=== PATIENT | female | born 1970 | race Hispanic/Latino ===

== ENCOUNTER 2017-08-07 10:52 | Outpatient (CLI) | payer BC ==
--- NOTE | 2017-08-07 12:49 | RAD ---
THREE VIEWS OF THE CERVICAL SPINE: 08/07/2017 HISTORY: Headache. Recent fall. TECHNIQUE: Lateral neutral flexion and extension radiographs of the cervical spine provided. FINDINGS: There is no anterolisthesis or retrolisthesis noted within the cervical spine on the neutral, flexion , or extension imaging. No prevertebral soft tissue abnormality. IMPRESSION: Normal cervical vertebral body height and alignment. POS: [facility]
--- NOTE | 2017-08-07 13:04 | CT ---
BRAIN CT WITHOUT IV CONTRAST: HISTORY: A 47-year-old female with a history of a headache after falling one week ago. FINDINGS: No focal mass or midline shift. No intraaxial or extraaxial hemorrhage. The sinuses and mastoids ar e clear. No acute process. IMPRESSION: Moderate atrophy for age. No mass or bleed or other acute process. POS: OFF
== END 2017-08-07 10:53 | disposition home or self-care (01) ==
LOC: SCSCT 10:52
PROVIDERS: ATTEND Neurological Surgery
DX: R51 Headache (principal)
CPT/HCPCS: 70450; 72040

== ENCOUNTER 2018-04-20 10:46 | Outpatient (CLI) | payer BC ==
--- NOTE | 2018-04-20 22:27 | MRI ---
MRI OF THE BILATERAL BREASTS WITH AND WITH CONTRAST 04/20/18 COMPARISON: Mammograms 04/20/18 and MRI of the breast 03/30/16. HISTORY: Family history of breast cancer. TECHNIQUE: Multiplanar and multisequence MR images are obtained of the bilateral breasts without and with IV con trasts. Contrast enhancement curves and 3D MIP reformats were generated on a [employer] workstation. FINDINGS: The patient has extremely dense breast parenchyma. The patient has bilateral saline breast implants w hich are predominantly subglandular There Is moderate background parenchymal enhancement which limits evaluation on this exam. There are multiple large nonenhancing foci of high T2 signal in the bilate ral breasts measuring up to 5.2 cm in size which represents cysts. No obvious suspicious mass is seen amongst a moderate background parenchymal enhancement. No suspicio us area of enhancement is appreciated. No axillary adenopathy is seen. No internal mammary lymph nodes are identified. The visualized anterior liver is unremarkable. No marrow signal abnormality is seen. IMPRESSION: BIRADS 2: Benign Finding(s) Routine annual screening mammography (for women over age 40). This exam is limited secondary to moderate background parenchymal enhancement. POS: [facility]
== END 2018-04-20 10:47 | disposition home or self-care (01) ==
LOC: BICMAMMO 10:46
PROVIDERS: ATTEND Obstetrics & Gynecology
DX: Z12.31 Encounter for screening mammogram for malignant neoplasm of breast (principal); Z80.3 Family history of malignant neoplasm of breast
CPT/HCPCS: 77063; 77067; C8908

== ENCOUNTER 2019-03-05 11:06 | Outpatient (CLI) | payer BC ==
--- NOTE | 2019-03-05 11:56 | RAD ---
3 views of the lumbar spine: 03/05/2019 COMPARISON: None HISTORY: Low back pain FINDINGS: Provided images include lateral neutral, flexion, and extension views of the lumbar spine. The neutral lateral exam demonstrates disc space narrowing with mild degenerative endplate change and anterior osteophyte formation at L3-4. There is mild retrolisthesis at L3-4 on the neutral imagin g measuring 3 mm. The flexion imaging demonstrates no anterolisthesis or retrolisthesis within the lumbar spine. There is no significant anterolisthesis or retrolisthesis seen on the extension view ei ther. Mild multilevel lower lumbar spine facet hypertrophy. IMPRESSION: Degenerative change within the lumbar spine, most prominent at L3-4 as detailed above.
== END 2019-03-05 11:07 | disposition home or self-care (01) ==
LOC: SCSRAD 11:06
PROVIDERS: ATTEND Neurological Surgery
DX: M54.5 Low back pain (principal); M47.816 Spondylosis without myelopathy or radiculopathy, lumbar region
CPT/HCPCS: 72110

== ENCOUNTER 2019-05-20 13:01 | Outpatient (CLI) | payer BC ==
--- NOTE | 2019-05-20 13:56 | MMO ---
Right Breast MAMMO Unilat Diag [facility]DI RT+JENNIFER. CLINICAL HISTORY: Patient is 49 years old and is seen for diagnostic exam and palpable abnormality in the right breast. The patient has the following family history of breast cancer: mother, at age 50; 2 aunts and grandmother. The patient has no personal history of cancer. The patient has a history of bilateral Implants in 2010 and right Excisional Biopsy in 2005 - benign. VIEWS: The views performed were: right craniocaudal; right craniocaudal with tomosynthesis; right mediolateral oblique; right mediolateral oblique with tomosynthesis; right mediolateral; right mediolateral with tomosynthesis; and right Implant displaced with tomosynthesis. FILMS COMPARED: The present examination has been compared to prior imaging studies performed at [facility] on 04/17/2019, and at [facility] on 08/10/2016, 04/20/2018 and 05/20/2019. This study has been interpreted with the assistance of computer-aided detection. MAMMOGRAM FINDINGS: The breast is extremely dense, which may lower the sensitivity of mammography. Ultrasound of the palpable finding was shown to be a cyst. There are no suspicious masses, suspicious calcifications, or new areas of architectural distortion. IMPRESSION: THERE IS NO MAMMOGRAPHIC EVIDENCE OF MALIGNANCY. A ROUTINE FOLLOW-UP MAMMOGRAM IN 1 YEAR IS RECOMMENDED. THE RESULTS OF THIS EXAM WERE SENT TO THE PATIENT. ACR BI-RADS Category 2 - Benign finding MAMMOGRAPHY NOTE: 1. A negative mammogram report should not delay a biopsy if a dominant of clinically suspicious mass is present. 2. Approximately 10% to 15% of breast cancers are not detected by mammography. 3. Adenosis and dense breasts may obscure an underlying neoplasm. Reported by: MATI HOTL MD Electonically Signed: [id number]
--- NOTE | 2019-05-20 13:59 | ULT ---
RIGHT BREAST ULTRASOUND: HISTORY: Palpable mass in the right breast. FINDINGS: Correlation is made with the mammogram of the same date. Sonographic evaluation of the region of palpable concern at the 1 o'clock position of the right breas t 5 cm from the nipple demonstrates a large cyst measuring 3.7 x 1.8 x 3.2 cm. MRI of 04/20/2018 demonstrates multiple bilateral breast cysts. IMPRESSION: BIRADS category 2 - benign findings. Return to annual mammographic screening. POS: OFF
== END 2019-05-20 13:02 | disposition home or self-care (01) ==
LOC: BICMAMMO 13:01
PROVIDERS: ATTEND Family Medicine
DX: N63.10 Unspecified lump in the right breast, unspecified quadrant (principal)
CPT/HCPCS: G0279

== ENCOUNTER 2023-01-20 14:17 | Outpatient (CLI) | payer OTHER | END 2023-01-20 14:18 | disposition home or self-care (01) | LOC: ULT 14:17 | PROVIDERS: ATTEND Thoracic Surgery (Cardiothoracic Vascular Surgery) | DX: I82.403 Acute embolism and thrombosis of unspecified deep veins of lower extremity, bilateral (principal) | CPT/HCPCS: 93970 ==

== ENCOUNTER 2023-07-04 07:30 | Inpatient (IN) | payer OTHER ==
[2023-07-04 15:34] VITALS: BMI 27.3
[2023-07-11] MEDS ORDERED: Propofol 500 MG/50 ML VIAL ONE (06:54)
[2023-07-11] MEDS ORDERED: PROPOFOL 0 ML ONE (06:56)
[2023-07-11] MEDS ORDERED: fentaNYL PF 100 MCG/2 ML SYRINGE ONE ×2 (06:56→08:23)
[2023-07-11] MEDS ORDERED: Lidocaine 2% 6 ML (Jelly) SYR ONE (06:56)
[2023-07-11] MEDS ORDERED: Lidocaine 1% PF 5 ML VIAL ONE (06:57)
[2023-07-11] MEDS ORDERED: Rocuronium Bromide 10 MG/ML (10ML VIAL) ONE (06:57)
[2023-07-11] MEDS ORDERED: Bupivacaine 0.25% HCL 30 ML VIAL ONE ×2 (07:04→07:20)
[2023-07-11] MEDS ORDERED: Lidocaine 1% (PF) 30 ML VIAL ONE (07:04)
[2023-07-11] MEDS ORDERED: Midazolam HCl 2 mg/2 ml Vial ONE ×2 (07:04→07:16)
[2023-07-11] MEDS ORDERED: fentaNYL 50 mcg/mL 1 mL Vial ONE ×2 (07:04→10:21)
[2023-07-11] MEDS ORDERED: Famotidine/PF 20 mg/2ml Vial ONE (07:12)
[2023-07-11] MEDS ORDERED: Ketamine In 0.9 % NaCl 50 MG/5 ML SYRINGE ONE (07:17)
[2023-07-11] MEDS ORDERED: EPINEPHrine 1 MG/ML VIAL ONE (07:20)
[2023-07-11] MEDS ORDERED: CEFAZOLIN 2 GM VIAL ONE (07:25)
[2023-07-11] MEDS ORDERED: Sodium Chloride 0.9% 100 ML ONE (07:25)
[2023-07-11] MEDS ORDERED: ePHEDrine Sulfate 50 MG/10 ML VIAL ONE (07:46)
[2023-07-11] MEDS ORDERED: Dexamethasone 20 MG/5 ML VIAL ONE (07:46)
[2023-07-11] MEDS ORDERED: Phenylephrine 10 MG/ML VIAL ONE (07:48)
[2023-07-11] MEDS ORDERED: Dexmedetomidine 200 MCG/2 ML VIAL ONE (08:07)
[2023-07-11] MEDS ORDERED: Esmolol 100 MG/10 ML VIAL ONE (08:26)
[2023-07-11] MEDS ORDERED: Ondansetron HCl/PF 4 MG/2 ML Vial IVP PRN (09:07)
[2023-07-11] MEDS ORDERED: Promethazine HCl 25 MG/ML VIAL IM PRN ×3 (09:07→10:17)
[2023-07-11] MEDS ORDERED: Ondansetron PF 4 MG/2 ML Vial ONE (09:24)
[2023-07-11] MEDS ORDERED: PROPOFOL 20 ML ONE (09:24)
[2023-07-11] MEDS ORDERED: SUGAMMADEX SODIUM 200 MG/2 ML VIAL ONE (09:24)
[2023-07-11] MEDS ORDERED: Naloxone HCl 0.4 mg/ml Vial IV PRN (09:44)
[2023-07-11] MEDS ORDERED: diphenhydrAMINE 50 MG/ML VIAL IVP PRN ×2 (09:44→10:17)
[2023-07-11] MEDS ORDERED: diphenhydrAMINE 25 MG CAP PO PRN (09:44)
[2023-07-11] MEDS ORDERED: Ondansetron PF 4 MG/2 ML Vial IVP PRN ×2 (09:44→10:17)
[2023-07-11] MEDS ORDERED: FENTANYL 500 MCG/10 ML VIAL 2,000 MCG in Sodium Chloride 0.9% 60 ML IV PRN (09:44)
[2023-07-11] MEDS ORDERED: diphenhydrAMINE 50 MG/ML VIAL IM PRN (09:44)
[2023-07-11] MEDS ORDERED: Communication Order-Pharmacy FS SCH (09:45)
[2023-07-11] MEDS ORDERED: Glucagon 1 MG/ML KIT IM PRN (10:17)
[2023-07-11] MEDS ORDERED: Ipratropium/Albuterol 3 ML NEB NEB PRN (10:17)
[2023-07-11] MEDS ORDERED: hydrALAZINE 20 MG/ML VIAL SLOW IVP PRN (10:17)
[2023-07-11] MEDS ORDERED: Dextrose 50% Abboject 50 ML SYRINGE SLOW IVP PRN (10:17)
[2023-07-11] MEDS ORDERED: Dextrose 5% in Water 1,000 ML IV PRN (10:17)
[2023-07-11] MEDS ORDERED: Ketorolac Tromethamine 30 MG (1 mL) VIAL ONE (10:36)
[2023-07-11] MEDS: Acetaminophen 325 MG (10.15 ML) UDCUP PO SCH (11:54)
[2023-07-11] MEDS: D5 1/2 NS w/20 mEq KCL 1,000 ML IV SCH (12:01)
[2023-07-12 04:56] LABS: #Monocytes 0.6 thou/uL (0.11-0.59); #Neutrophils 6.1 thou/uL (1.40-6.50); %Basophils 0.2 % (0.0-1.0); %Eosinophils 0.4 % (0.0-10.0); %Lymphocytes 17.3 % (21.0-51.0); %Monocytes 7.8 % (0.0-10.0); %Neutrophils 74.2 % (42.0-75.0); Hematocrit 28.9 % (36.0-47.0); Hemoglobin 9.1 g/dL (12.0-16.0); Mean Corpuscular HGB CONC 31.5 g/dL (32.0-36.0); Mean Corpuscular Hemoglobin 22.8 pg (27.0-31.0); Mean Corpuscular Volume 72.4 fl (78.0-98.0); Mean Platelet Volume 11.5 fL (7.4-10.4); Platelet Count 210 10x3/uL (130-400); RBC Distribution Width 16.5 % (11.5-14.5); Red Blood Cell (RBC) Count 3.99 mill/uL (4.20-5.40); White Blood Cell (WBC) Count 8.2 10x3/uL (4.8-10.8)
[2023-07-12 05:16] LABS: Anion Gap 10 mmol/L (10-20); BUN (Urea Nitrogen) 6 mg/dL (9.8-20.1); Calc. Creatinine Clearance 108 mL/min (70-130); Calcium 8.5 mg/dL (7.8-10.44); Carbon Dioxide 25 mmol/L (22-29); Chloride 106 mmol/L (98-107); Estimated GFR 103; Glucose 117 mg/dL (70-105); Potassium 3.6 mmol/L (3.5-5.1); Sodium 137 mmol/L (136-145)
[2023-07-12] MEDS: Hydrocodone-Acetamin 15 ML UDCUP PO PRN (05:59)
[2023-07-12 06:21] LABS: Anisocytosis SLIGHT = 6-15 cells HPF (0-5); CellaVision Operator ID lab.sh2; Microcytosis SLIGHT = 6-15 cells HPF (0-5); Ovalocytes SLIGHT = 2-5 cells HPF (0-1); Platelet Adequacy Comment Platelets Normal; Polychromasia SLIGHT = 2-3 cells HPF (0-2)
[2023-07-12 08:00] VITALS: BP 133/84; TEMP 98.4
[2023-07-12] MEDS ORDERED: Pantoprazole 40 MG VIAL IVP SCH (09:00)
[2023-07-12] MEDS ORDERED: FLU VACC QS2023-24(6MOS UP)/PF 60 MCG/0.5 ML SYRINGE IM ONE (09:00)
[2023-07-12] MEDS ORDERED: Enoxaparin 40 MG (0.4 mL) SYRINGE SC SCH (09:00)
== END 2023-07-12 10:12 | disposition home or self-care (01) | DRG 328 ==
LOC: SURG A 07-11 06:15 → SURG B 07-11 11:40 → EDSTATUS 07-11 15:30
PROVIDERS: ADMIT Surgery; ATTEND Surgery
PROC: 0D164ZA Bypass Stomach to Jejunum, Percutaneous Endoscopic Approach (ICD-10-PCS; principal; 2023-07-11)
PROC: 3E033XZ Introduction of Vasopressor into Peripheral Vein, Percutaneous Approach (ICD-10-PCS; 2023-07-11)
PROC: 8E0W4CZ Robotic Assisted Procedure of Trunk Region, Percutaneous Endoscopic Approach (ICD-10-PCS; 2023-07-11)
DX: K31.1 Adult hypertrophic pyloric stenosis (principal); K21.00 Gastro-esophageal reflux disease with esophagitis, without bleeding; K21.9 Gastro-esophageal reflux disease without esophagitis; E66.01 Morbid (severe) obesity due to excess calories; Z68.27 Body mass index [BMI] 27.0-27.9, adult
CPT/HCPCS: 36415; 80048; 85025; J0171; J0665; J1100; J1885; J2001; J2250; J2371; J2405; J2704; J3010; J3480; J3490; S0028

== ENCOUNTER 2023-07-04 15:20 | Outpatient (CLI) | payer OTHER ==
[2023-07-04 16:26] LABS: #Basophils 0.1 10x3/uL (0.0-0.2); #Eosinphils 0.2 10x3/uL (0.0-0.5); #Monocytes 0.3 10x3/uL (0.0-1.1); %Basophils 1.7 % (0.0-2.0); %Eosinophils 4.9 % (0.0-6.0); %Lymphocytes 36.5 % (18.0-47.0); %Monocytes 6.7 % (0.0-10.0); %Neutrophils 50.2 % (40.0-75.0); Hematocrit 34.6 % (34.9-44.5); Mean Corpuscular HGB CONC 31.8 g/dL (32.0-36.0); Mean Corpuscular Hemoglobin 23.1 pg (27.0-33.0); Mean Corpuscular Volume 72.7 fl (81.6-98.3); RBC Distribution Width 16.1 % (11.5-14.5); Red Blood Cell (RBC) Count 4.76 10x6/uL (3.90-5.03); White Blood Cell (WBC) Count 4.1 10x3/uL (3.5-10.5)
[2023-07-04 16:27] LABS: Platelet Count 224 10x3/uL (150-450)
[2023-07-04 16:44] LABS: ALT (SGPT) 10 U/L (8-55); AST (SGOT) 10 U/L (5-34); Albumin 4.5 g/dL (3.5-5.0); Alkaline Phosphatase 45 U/L (40-110); Anion Gap 12 mmol/L (10-20); BUN (Urea Nitrogen) 13 mg/dL (9.8-20.1); Bilirubin, Total 0.5 mg/dL (0.2-1.2); Calc. Creatinine Clearance 0 mL/min (70-130); Calcium 9.1 mg/dL (7.8-10.44); Carbon Dioxide 27 mmol/L (22-29); Chloride 106 mmol/L (98-107); Estimated GFR 95; Globulin 2.7 g/dL (2.4-3.5); Glucose 99 mg/dL (70-105); Potassium 3.9 mmol/L (3.5-5.1); Protein, Total 7.2 g/dL (6.0-8.3); Sodium 141 mmol/L (136-145)
[2023-07-05 12:59] LABS: Hemoglobin A1c 5.7 % (4.0-6.0)
== END 2023-07-04 15:21 | disposition home or self-care (01) ==
LOC: LABBT 15:20
PROVIDERS: ATTEND Surgery
DX: Z01.818 Encounter for other preprocedural examination (principal); K21.00 Gastro-esophageal reflux disease with esophagitis, without bleeding; K31.1 Adult hypertrophic pyloric stenosis
CPT/HCPCS: 80053; 83036; 85025; 93005; 93010